=== PATIENT | female | born 1950 | race Caucasian/White ===

== ENCOUNTER 2020-06-07 09:57 | Day surgery (SDC) | payer MEDICARE, SELFPAY ==
[2020-06-07 10:29] VITALS: BMI 28.3
[2020-06-07 10:40] VITALS: BP 146/85; PULSE 73; RESP 16; TEMP 36.2; O2SAT 98
--- NOTE | 2020-06-07 10:49 | MHC.SHP ---
Pre-Procedural Eval Section A The patient is an INPATIENT: No Changes since office visit: No Cold of Flu in the past 2 weeks, No New Medical Problems, No Changes in Medication and No Patient answered all questions The History & Physical has been completed within 30 days and I have reviewed it.: Yes Section B Chief Complaint: epigastric pain,bowel change Plan Patient has been examined and remains a candidate for the planned procedure
--- NOTE | 2020-06-07 11:17 | HO.ANESPROP2 ---
[facility] Past Medical History Medical History (Updated 06/07/20 @ 10:49 by Audrey Palacio RN) B12 deficiency anemia Colonoscopy planned Fx tibia/fibula shaft-op Hx of migraines Family History Family history of problems with anesthesia: No Surgical History Surgical History (Updated 06/07/20 @ 11:24 by Lilian Ray) H/O colonoscopy History of oral surgery History of Problems with Anesthesia: Yes (Slow awakening after last colonoscopy) Social History Social History Are you a primary lpn care manager to a significant other at home: No Do you presently have visiting nurse or other home services: No Advance Directives: No Advance Directives Information Provided: Yes Advance Directives on File: No Recently lost weight without trying: No Meds Allergies Allergy/AdvReac Type Severity Reaction Status Date / Time No Known Allergies Allergy Verified 06/07/20 10:51 Exam Exam Date and Time: June 07, 2020 1117 Height,Weight and Vital Signs: Height 5 ft 2 in Weight 70.307 kg Last Vital Signs Temp 97.1 F 06/07/20 10:40 Pulse 73 06/07/20 10:40 Resp 16 06/07/20 10:40 BP 146/85 H 06/07/20 10:40 Pulse Ox 98 06/07/20 10:40 Airway Mallampati Class: II TM Dist: >3cm Neck ROM: Full Loose/Missing/Broken Teeth: Yes (Caps intact) Heart: RRR Lungs: CTAB Assessment and Plan Assessment Anesthesia Assessment: Anesthesia Plan Discussed and Chart Reviewed Final Anesthetic Review NPO: Yes ASA Class: II Final Preanesthetic Review: No Changes in Pt Med Stat, Meds/Allgs Chart Reviewed and Consent Obtained/Reviewed Patient Risk: Low Procedure Risk: Low Anesthetic Plan Anesthetic Plan: MAC: Disposition: Standard PACU
[2020-06-07 12:27] VITALS: BP 108/73; PULSE 69; RESP 16; TEMP 35.8; O2SAT 99
--- NOTE | 2020-06-07 12:29 | PM.OP ---
Brief Operative Note Date of Service: 06/07/20 Pre-op diagnosis: gerd,epigastric pain, abnormal findings in stool Post-op diagnosis: same (colon polyp) Procedure: egd colon Surgeon: Fabrice Beltran Anesthesia: MAC Estimated blood loss (mL): 5 Pathology: other (antral, egj biopsies, cecal polyp) Condition: stable Disposition: PACU
[2020-06-07 12:43] VITALS: BP 119/78; PULSE 67; RESP 18; TEMP 36.2; O2SAT 100
--- NOTE | 2020-06-07 12:49 | OP_ITS ---
SURGEON: Fabrice Beltran MD INDICATIONS: 1. Epigastric pain and gastroesophageal reflux disease. 2. Abnormal findings in stool. PREOPERATIVE DIAGNOSIS: POSTOPERATIVE DIAGNOSIS: PROCEDURE PERFORMED: 1. Upper endoscopy with biopsy. 2. Colonoscopy to the terminal ileum with snare polypectomy. ESTIMATED BLOOD LOSS: COMPLICATIONS: ANESTHESIA: ASSISTANTS: SPECIMENS: MEDICATIONS: Monitored anesthesia care. DESCRIPTION OF PROCEDURE: History and physical performed. The risks and benefits of the procedure were explained to the patient. Informed consent was obtained. The patient was placed in a left lateral decubitus position. The Olympus video gastroscope was introduced into the esophagus, stomach, and duodenum. Examination was performed and the scope was removed. She was repositioned for colonoscopy. A digital rectal exam was performed and was found to be normal. The Olympus pediatric video colonoscope was introduced into the rectum and advanced to the cecum without difficulty. The cecum was identified by transillumination, palpation, and identification of ileocecal valve. Examination was performed and the scope was removed. She tolerated both procedures well and was returned to recovery area in stable condition. FINDINGS: UPPER ENDOSCOPY: Esophagus: The esophagus showed a nodular EG junction with no discrete mass. There was no esophagitis. Biopsies were obtained from the EG junction. Stomach: The stomach was normal. Antral biopsies were obtained to rule out H pylori. Duodenum: The bulb and second portion were normal. COLONOSCOPY: The terminal ileum was briefly examined and appeared normal. The visualized colonic mucosa was within normal limits without evidence of masses or ulcers. A single polyp in the cecum measuring about 8 mm was removed with a snare and recovered via suction. No other polyps were identified. There was mild sigmoid diverticulosis. The quality of the prep was good. IMPRESSION: 1. Gastroesophageal reflux disease. 2. Colon polyp. RECOMMENDATION: Follow up biopsy results. MD SHELLEY Grace/SHAI / [id number]
--- NOTE | 2020-06-07 13:11 | HO.POSTANES ---
Post Anesthesia Evaluation Post Anesthesia Evaluation Vital Signs: Vital Signs Temp Pulse Resp BP Pulse Ox 06/07/20 12:43 97.1 F 67 18 119/78 100 06/07/20 12:27 96.5 F L 69 16 108/73 99 06/07/20 10:40 97.1 F 73 16 146/85 H 98 Anesthesia: Monitored Mental Status: Awake Pain Control: Satisfactory Nausea/Vomiting: None Hydration: Adequate Anesthesia-Related Issues: No Anes. Related Issues
== END 2020-06-07 13:15 | disposition home or self-care (01) ==
PROVIDERS: PCP Family Medicine; Visit Provider Internal Medicine Gastroenterology
PROC: (CPT 43239; principal; 2020-06-07 11:30)
DX: R19.5 Other fecal abnormalities (principal); K63.5 Polyp of colon; R10.13 Epigastric pain; K21.00 Gastro-esophageal reflux disease with esophagitis, without bleeding
CPT/HCPCS: 43239; 45385; 88305; 88342